=== PATIENT | female | born 1950 | race Caucasian/White ===

== ENCOUNTER → 2023-08-26 | Outpatient (REF) | payer MEDICARE, OTHER ==
[~2023-08-26] MED LIST: IOPAMIDOL 370 MG/ML 100 ML INFUS..BTL INJ ONE; SODIUM CHLORIDE 0.9% 100 ML ONE; SODIUM CHLORIDE 0.9% 500ML 500 ML ONE
== END ==
LOC: CT 13:15
PROVIDERS: ATTEND Family Medicine
DX: I70.203 Unspecified atherosclerosis of native arteries of extremities, bilateral legs (principal)
CPT/HCPCS: 75635; 96360; J7040; J7050; Q9967